=== PATIENT | female | born 1950 | race African-American/Black ===

== ENCOUNTER 2017-09-16 09:29 | Outpatient (CLI) | payer MEDICARE | END 2017-09-16 09:30 | disposition home or self-care (01) | LOC: BICMAMMO 09:29 | PROVIDERS: ATTEND Emergency Medicine | DX: Z12.31 Encounter for screening mammogram for malignant neoplasm of breast (principal); R92.1 Mammographic calcification found on diagnostic imaging of breast | CPT/HCPCS: 77063; 77067 ==

== ENCOUNTER 2018-05-14 21:42 | Emergency (ER) | payer MEDICARE ==
--- NOTE | 2018-05-14 22:36 | RAD ---
CHEST TWO VIEWS: HISTORY: Cough. FINDINGS: PA and lateral views of the chest are obtained. FINDINGS: Left hilar lymph node calcification is seen. Cardiomegaly is seen. Mild pulmonary vascular congestion is seen. No evidence of acute intrathoraci c abnormality is seen. No evidence of effusions, pneumonia, or pneumothorax is seen. IMPRESSION: Cardiomegaly. POS: [facility]
== END 2018-05-14 23:53 | disposition home or self-care (01) ==
LOC: ERS 21:42
DX: J06.9 Acute upper respiratory infection, unspecified (principal); E78.5 Hyperlipidemia, unspecified; I10 Essential (primary) hypertension; Z79.899 Other long term (current) drug therapy
CPT/HCPCS: 71046; 87804

== ENCOUNTER 2018-07-21 08:04 | Outpatient (CLI) | payer MEDICARE ==
--- NOTE | 2018-07-21 10:26 | ULT ---
BILATERAL RENAL ULTRAASOUND WITH DOPPLER: Date: 07/21/18 PROVIDED CLINICAL HISTORY: Chronic kidney disease, hypertension. FINDINGS: Right kidney measures about 10.4 x 4.1 x 4.6 cm and demonstrates no evidence for hydronephrosis or ma ss. Left kidney measures about 10.0 x 5.3 x 5.1 cm and demonstrates no evidence for hydronephrosis or mas s. Color Doppler and spectral analysis was performed of the abdominal aorta, main right and left renal a rteries, and bilateral renal arcuate system. Peak systolic velocity within the aorta is 73.7 cm/second, 119 cm/second involving right main renal a rtery, and 29.8 cm/second involving the left main renal artery. Ratios are 1.6 on the right and .68 o n the left. Resistive indices within the arcuate system is .6 on the right and .63 on the left. IMPRESSION: 1. No evidence for hydronephrosis. 2. No sonographic evidence for renal artery stenosis. POS: [facility]
== END 2018-07-21 08:05 | disposition home or self-care (01) ==
LOC: BICULT 08:04
PROVIDERS: ATTEND Internal Medicine Nephrology
DX: I12.9 Hypertensive chronic kidney disease with stage 1 through stage 4 chronic kidney disease, or unspecified chronic kidney disease (principal); N18.4 Chronic kidney disease, stage 4 (severe)
CPT/HCPCS: 76700; 76770

== ENCOUNTER 2018-11-03 11:41 | Outpatient (CLI) | payer MEDICARE ==
--- NOTE | 2018-11-03 13:44 | MMO ---
Bilateral MAMMO Bilat Screen DDI+LEONCIO. CLINICAL HISTORY: Patient is 68 years old and is seen for screening. The patient has no family history of breast cancer. The patient has no personal history of cancer. VIEWS: The views performed were: bilateral craniocaudal with tomosynthesis and bilateral mediolateral oblique with tomosynthesis. FILMS COMPARED: The present examination has been compared to prior imaging studies performed at [facility] on 10/02/2010, 04/30/2013, 07/01/2014, 08/19/2015, 08/24/2016 and 09/16/2017, and at [facility] on 09/10/2011. MAMMOGRAM FINDINGS: There are scattered fibroglandular densities. There are stable benign appearing calcifications seen in both breasts. There are no suspicious masses, suspicious calcifications, or new areas of architectural distortion. IMPRESSION: THERE IS NO MAMMOGRAPHIC EVIDENCE OF MALIGNANCY. A ROUTINE FOLLOW-UP MAMMOGRAM IN 1 YEAR IS RECOMMENDED. THE RESULTS OF THIS EXAM WERE SENT TO THE PATIENT. ACR BI-RADS Category 2 - Benign finding MAMMOGRAPHY NOTE: 1. A negative mammogram report should not delay a biopsy if a dominant of clinically suspicious mass is present. 2. Approximately 10% to 15% of breast cancers are not detected by mammography. 3. Adenosis and dense breasts may obscure an underlying neoplasm.
== END 2018-11-03 11:42 | disposition home or self-care (01) ==
LOC: BICMAMMO 11:41
PROVIDERS: ATTEND Emergency Medicine
DX: Z12.31 Encounter for screening mammogram for malignant neoplasm of breast (principal)
CPT/HCPCS: 77063; 77067

== ENCOUNTER 2019-08-12 22:04 | Observation (INO) | payer MEDICARE ==
[2019-08-12] MEDS ORDERED: Aspirin Chewable 81 MG TAB ONE (22:16)
[2019-08-12] MEDS ORDERED: Nitroglycerin 0.4 MG TAB 1 EACH ONE (22:16)
[2019-08-12] MEDS ORDERED: Nitroglycerin 2% Ointment 1 INCH/1 GM Packet ONE (22:16)
[2019-08-12 22:26] LABS: #Basophils 0.1 thou/uL (0.0-0.2); #Eosinphils 0.2 thou/uL (0.0-0.7); #Lymphocytes 2.8 thou/uL (1.20-3.40); #Monocytes 0.9 thou/uL (0.11-0.59); #Neutrophils 6.5 thou/uL (1.40-6.50); %Basophils 0.9 % (0.0-1.0); %Eosinophils 2.1 % (0.0-10.0); %Lymphocytes 26.8 % (21.0-51.0); %Monocytes 8.2 % (0.0-10.0); %Neutrophils 62.1 % (42.0-75.0); Mean Corpuscular HGB CONC 32.5 g/dL (32.0-36.0); Mean Corpuscular Hemoglobin 26.4 pg (27.0-31.0); Mean Corpuscular Volume 81.2 fL (78.0-98.0); Mean Platelet Volume 9.4 fL (7.4-10.4); Platelet Count 255 thou/uL (130-400); RBC Distribution Width 13.8 % (11.5-14.5); Red Blood Cell (RBC) Count 4.54 mill/uL (4.20-5.40); White Blood Cell (WBC) Count 10.4 thou/uL (4.8-10.8)
--- NOTE | 2019-08-12 22:34 | RAD ---
Chest AP view INDICATION: Palpitations and chest pain COMPARISON: May 14, 2018 FINDINGS: Lungs:The lungs are clear Cardiac silhouette:Stable mild cardiomegaly. Pulmonary vasculature:Normal Pleural spaces:No pleural effusion or pneumothorax is demonstrated. Upper abdomen:No abnormality seen. Osseous structures: No acute osseous abnormality. Additional findings:Stable calcified lymph nodes within the left hilar region. IMPRESSION: No acute cardiopulmonary abnormality.
[2019-08-12 22:52] LABS: ALT (SGPT) 12 U/L (8-55); AST (SGOT) 11 U/L (5-34); Albumin 4.5 g/dL (3.4-4.8); Alkaline Phosphatase 75 U/L (40-110); Anion Gap 17 mmol/L (10-20); BUN (Urea Nitrogen) 60 mg/dL (9.8-20.1); Bilirubin, Total 0.4 mg/dL (0.2-1.2); CK (CPK) 66 U/L (29-168); Calc. Creatinine Clearance 0 mL/min (70-130); Calcium 9.7 mg/dL (7.8-10.44); Carbon Dioxide 22 mmol/L (23-31); Chloride 107 mmol/L (98-107); Estimated GFR-MDRD 22; Globulin 2.8 g/dL (2.4-3.5); Glucose 125 mg/dL (80-115); Potassium 3.6 mmol/L (3.5-5.1); Protein, Total 7.3 g/dL (6.0-8.3); Sodium 142 mmol/L (136-145)
[2019-08-13 00:06] VITALS: BMI 30.6
[2019-08-13] MEDS ORDERED: Ondansetron ODT 4 MG TAB PO PRN (00:39)
[2019-08-13] MEDS ORDERED: Calcium Carbonate 500 MG ChewTAB PO PRN (00:39)
[2019-08-13] MEDS ORDERED: Acetaminophen 325 MG TAB PO PRN (00:39)
--- NOTE | 2019-08-13 00:46 | PDOC.FPRHP ---
- History of Present Illness Chief Complaint: chest pain History of Present Illness: Patient is a 69F with PMHx of HTN, HLD, CKD3, and anxiety that presents with chest pain. Per patient the chest pain began earlier on the evening of 2/3 while she was at rest. She has never experienced this type of pain before. She states that the pain was sharp in quality and below and lateral to her left breast. She also states that it radiated to her left arm, and she felt blood rushing up through her ears. Her blood pressure on presentation was 217/94. She reports that she has recently been dealing with a sinus infection for the last several weeks. She reports that about 2 weeks ago she went and saw her ED physician that prescribed her abx and steroids and she has a f/u appt with him this week. She reports her sinus infection has caused her to have an intermittent headache throughout the last week, though it had resolved by the time of evaluation. She has not had any previous cardiac workup including echo, stress test, or cardiac cath. No previous MD or stroke. PCP: Missy ED Course: SL nitroglycerin, topical nitroglycerin, asa 324mg - Allergies/Adverse Reactions Allergies Allergy/AdvReac Type Severity Reaction Status Date / Time ENZO Inhibitors Allergy Severe Swollen Verified 08/13/19 00:16 Lips - Home Medications Medication Instructions Recorded Confirmed Type Amlodipine Besylate [amLODIPine 10 mg PO DAILY 09/05/13 08/13/19 History Besylate] cloNIDine HCl 0.3 mg PO TID 09/05/13 08/13/19 History Atorvastatin Calcium [Lipitor] 20 mg PO HS 08/13/19 08/13/19 History Carvedilol 25 mg PO BID 08/13/19 08/13/19 History Cholecalciferol (Vitamin D3) 1,000 unit PO ASDIR 08/13/19 08/13/19 History [Vitamin D3] Hydrochlorothiazide 25 mg PO DAILY 08/13/19 08/13/19 History hydrALAZINE HCl [Hydralazine HCl] 50 mg PO TID 08/13/19 08/13/19 History - History PMHx: HTN, HLD, CKD3, Anxiety PSHx: cholecystectomy, hysterectomy FHx: son had an MD, no other MD or CVA Social: quit smoking 30 years ago, no etoh use, no drug use - Review of Systems General: denies: fever/chills, weight/appetite/sleep changes Eyes: denies: eye pain, vision changes ENT: denies: nasal congestion, rhinorrhea Respiratory: denies: cough, shortness of breath Cardiovascular: reports: chest pain. denies: edema Gastrointestinal: denies: nausea, vomiting, diarrhea Genitourinary: denies: incontinence, polyuria Skin: denies: rashes, lesions Musculoskeletal: denies: pain, stiffness Neurological: denies: numbness, syncope Psychological: reports: anxiety. denies: depression - Vital signs BP: [165/78] HR: [71] RR: [13] Tmax: [98.3] Pox: [99]% on [RA] Wt: [86.0kg] - Physical Exam Constitutional: NAD, awake, alert and oriented, well developed HEENT: EOMI, MMM Neck: supple, FROM Chest: no-tender to palpation, no lesions Heart: RRR, normal S1/S2 Lungs: CTAB, no respiratory distress Abdomen: soft, non-tender Musculoskeletal: normal structure, normal tone Neurological: no focal deficit, normal sensation Skin: no rash/lesions, good turgor Heme/Lymphatic: no unusual bruising or bleeding, no purpura Psychiatric: normal mood and affect, good judgment and insight FMR H&P: Results - Labs Result Diagrams: 08/13/19 04:40 08/13/19 04:40 Lab results: WBC 10.4 thou/uL (4.8-10.8) 08/12/19 22:15 Hgb 12.0 g/dL (12.0-16.0) 08/12/19 22:15 Hct 36.9 % (36.0-47.0) 08/12/19 22:15 MCV 81.2 fL (78.0-98.0) 08/12/19 22:15 Plt Count 255 thou/uL (130-400) 08/12/19 22:15 Neutrophils % 62.1 % (42.0-75.0) 08/12/19 22:15 Sodium 142 mmol/L (136-145) 08/12/19 22:15 Potassium 3.6 mmol/L (3.5-5.1) 08/12/19 22:15 Chloride 107 mmol/L (98-107) 08/12/19 22:15 Carbon Dioxide 22 mmol/L (23-31) L 08/12/19 22:15 BUN 60 mg/dL (9.8-20.1) H 08/12/19 22:15 Creatinine 2.64 mg/dL (0.6-1.1) H 08/12/19 22:15 Glucose 125 mg/dL (80-115) H 08/12/19 22:15 Calcium 9.7 mg/dL (7.8-10.44) 08/12/19 22:15 Total Bilirubin 0.4 mg/dL (0.2-1.2) 08/12/19 22:15 AST 11 U/L (5-34) 08/12/19 22:15 ALT 12 U/L (8-55) 08/12/19 22:15 Alkaline Phosphatase 75 U/L (40-110) 08/12/19 22:15 Creatine Kinase 66 U/L (29-168) 08/12/19 22:15 B-Natriuretic Peptide 98.4 pg/mL (0-100) 08/12/19 22:15 Serum Total Protein 7.3 g/dL (6.0-8.3) 08/12/19 22:15 Albumin 4.5 g/dL (3.4-4.8) 08/12/19 22:15 - EKG Interpretation EKG: NSR, no ST segment elevation - Radiology Interpretation Chest x-ray Status: report reviewed by me (no acute abnormality) FMR H&P: A/P - Problem List (1) Hypertensive urgency Current Visit: Yes Status: Acute Code(s): I16.0 - HYPERTENSIVE URGENCY (2) Atypical chest pain Current Visit: Yes Status: Acute Code(s): R07.89 - OTHER CHEST PAIN (3) HTN (hypertension) Current Visit: Yes Status: Chronic Code(s): I10 - ESSENTIAL (PRIMARY) HYPERTENSION (4) HLD (hyperlipidemia) Current Visit: Yes Status: Chronic Code(s): E78.5 - HYPERLIPIDEMIA, UNSPECIFIED (5) CKD (chronic kidney disease) stage 3, GFR 30-59 ml/min Current Visit: Yes Status: Chronic Code(s): N18.3 - CHRONIC KIDNEY DISEASE, STAGE 3 (MODERATE) (6) Anxiety Current Visit: Yes Status: Chronic Code(s): F41.9 - ANXIETY DISORDER, UNSPECIFIED - Plan Patient is a 69F with PMHx of HTN, HLD, CKD3, and anxiety that is admitted for atypical chest pain. #Atypical chest pain -acute onset chest pain at rest -EKG: NSR, no ST elevation/depression -trop <0.01, will trend -Heart score 5 -BNP: 98.4 -CXR: negative for acute process -stress test in am -NPO for stress test -FLP, TSH, A1C pending for risk stratification -telemetry overnight for cardiac monitoring -nitroglycerin prn for chest pain #Hypertensive urgency -BP 217/94 on presentation -patient has possible ANDREA vs worsening CKD -patient presented with MESA, likely caused by HTN -will continue patient's home BP medications and monitor kidney function in am -IV prn BP medications #HTN -continue home meds -hold home carvedilol for stress test #HLD -continue home meds #ANDREA vs CKD3 -hx of CKD3 -creatinine elevated compared to previously -LR @ 120 -avoid renally toxic medications -will monitor with repeat BMP in am #Anxiety -patient agreeable with the plan of care DVT ppx: SCD Diet: NPO Dispo: tele obs for cardiac monitoring, stress test in am, trending troponins Code: Full PCP: Missy FMR H&P: Upper Level - Pertinent history 69 yo F w/hx of HTN, anxiety, and CKD3 here with complaint of L sided chest pain that onset earlier today. She notes that symptoms started with a headache and being able to feel her heart beating in her ears. She then developed nausea and sweats. Chest pain was described as a feeling of indigestion. It did not radiate. BP in the ED was as high as 217 systolic PMHx HTN CKD3 HLD Social Hx Previous 20-30 year hx of cigarette smoking. Quit 30 years ago No etoh or drugs - Pertinent findings See music intern note for full ROS, PE, vitals, and labs ROS General Denies chills and fever HEENT denies sore throat or ear pain CV Complains of CP and diaphoresis. Denies palpitations Resp Denies SOB or cough GI Denies abdominal pain. Complains of n/v denies dysuria and frequency Neuro denies weakness or numbness. PE General A&O x4 HEENT NCAT CV RRR, no murmur Resp CTA Abd soft, non tender Neuro no focal deficits - Plan Date/Time: 08/13/19 0046 IFitz DO, have evaluated this patient and agree with findings/plan as outlined by music intern resident. Pertinent changes/additions are listed here. 1.Hypertensive urgency - Restart home meds, will add IV PRNs - This is the most likely source of MESA and ANDREA -Goal MAP for first 24 hours is 100 2.ANDREA vs CKD3 - Most recent known GFR is 28, here it is 22. This may represent a worsening of CKD or a result of the elevated BP -Repeat BMP in am 3.Anginal chest pain -Suspect that this is secondary to BP. Initial trop is negative. -HEART score is 5. Will plan for stress in am Diet Heart healthy Code Full PPx SCD Dispo: pt is in good condition. Will plan for BP control over night and adjustment of home meds tomorrow. Likely length of stay is 1-2 days.
[2019-08-13] MEDS ORDERED: cloNIDine 0.3 MG TAB PO SCH (01:15)
[2019-08-13] MEDS ORDERED: hydrALAZINE 25 MG TAB PO SCH (01:15)
[2019-08-13] MEDS ORDERED: Atorvastatin Calcium 20 MG TAB PO SCH ×2 (01:15→21:00)
[2019-08-13 01:44] LABS: Troponin I 0.014 ng/mL (< 0.028)
[2019-08-13] MEDS ORDERED: Lactated Ringer's 1,000 ML IV SCH (02:45)
[2019-08-13 05:05] LABS: #Basophils 0.1 thou/uL (0.0-0.2); #Eosinphils 0.1 thou/uL (0.0-0.7); #Lymphocytes 1.9 thou/uL (1.20-3.40); #Monocytes 0.7 thou/uL (0.11-0.59); #Neutrophils 5.7 thou/uL (1.40-6.50); %Basophils 0.8 % (0.0-1.0); %Eosinophils 1.2 % (0.0-10.0); %Lymphocytes 22.7 % (21.0-51.0); %Monocytes 7.8 % (0.0-10.0); %Neutrophils 67.6 % (42.0-75.0); Hemoglobin 10.5 g/dL (12.0-16.0); Mean Corpuscular Hemoglobin 25.9 pg (27.0-31.0); Mean Platelet Volume 9.7 fL (7.4-10.4); Platelet Count 196 thou/uL (130-400); RBC Distribution Width 13.6 % (11.5-14.5); Red Blood Cell (RBC) Count 4.07 mill/uL (4.20-5.40); White Blood Cell (WBC) Count 8.4 thou/uL (4.8-10.8)
[2019-08-13 05:15] LABS: Hemoglobin A1c 6.1 % (4.0-6.0)
[2019-08-13 05:28] LABS: Anion Gap 14 mmol/L (10-20); BUN (Urea Nitrogen) 56 mg/dL (9.8-20.1); Calc. Creatinine Clearance 33 mL/min (70-130); Calcium 9.7 mg/dL (7.8-10.44); Carbon Dioxide 20 mmol/L (23-31); Chloride 109 mmol/L (98-107); Estimated GFR-MDRD 27; Glucose 118 mg/dL (80-115); Potassium 3.4 mmol/L (3.5-5.1); Sodium 140 mmol/L (136-145)
[2019-08-13 05:30] LABS: Troponin I 0.014 ng/mL (< 0.028)
[2019-08-13] MEDS ORDERED: Nitroglycerin 2% Ointment 1 INCH/1 GM Packet TOP SCH (06:00)
[2019-08-13] MEDS ORDERED: Potassium Chloride 20 MEQ TAB PO SCH (06:30)
[2019-08-13] MEDS ORDERED: Labetalol HCl 100 MG/20 ML VIAL SLOW IVP PRN (06:31)
[2019-08-13] MEDS ORDERED: Aspirin 325 MG TAB PO SCH (08:00)
[2019-08-13] MEDS: hydrALAZINE 25 MG TAB PO SCH ×2 (08:09→15:36)
[2019-08-13] MEDS: cloNIDine 0.3 MG TAB PO SCH ×2 (08:09→15:37)
[2019-08-13] MEDS ORDERED: Amlodipine 10 MG TAB PO SCH (09:00)
[2019-08-13] MEDS ORDERED: Hydrochlorothiazide 25 MG TAB PO SCH (09:00)
[2019-08-13] MEDS ORDERED: Prevnar 13-Val Conj/PF 0.5 ML SYRINGE IM ONE (09:00)
--- NOTE | 2019-08-13 11:08 | PRG ---
DATE OF SERVICE: 08/13/2019 SUBJECTIVE: I have examined the patient and discussed the case with Dr. Anna Marie Sena. I agree with her assessment and plan. Briefly, Ms. Simon is a 69-year-old black female, who was admitted with hypertension, chest pain, and CKD. This morning, she is pleasant and alert. Blood pressure has improved, and she is no longer having chest discomfort. OBJECTIVE: VITAL SIGNS: On exam, her blood pressure is now 165/78, heart rate 71 and regular, respirations 13, and temperature 98.3. Her room air O2 saturation is 99%. EAR, NOSE, AND THROAT: No erythema or exudate. NECK: Supple without JVD. CARDIAC: Heart rhythm regular, S4 gallop. No murmur and no rub noted. LUNGS: Clear. No rales or wheezes. No distress. ABDOMEN: Flat, soft without bruit. NEUROLOGICAL: No focal deficits. IMAGING STUDIES: EKG with no acute ischemic changes. LABORATORY DATA: CBC; white count 10,400, hemoglobin 12, and hematocrit 36.9 with an MCV of 81. Chemistries; sodium 140, potassium 3.4, chloride 109, bicarb 20, BUN 56, and creatinine 2.18. ASSESSMENT: Chest pain. PLAN: The patient will be admitted. Her tropes have been trended and are normal at 0.014. She will undergo a stress Myoview with further workup depending on results. Job ID: [id number]
--- NOTE | 2019-08-13 11:25 | NM ---
NUCLEAR MEDICINE CARDIAC MYOCARDIAL PERFUSION SPECT EJECTION FRACTION STUDY WALL MOTION CINE: DATE: 08/13/2019 HISTORY: 69 year old female with hypertension and dyslipidemia presents with atypical chest pain TECHNIQUE: Number of days: 1 Rest study: Technetium 99m-sestamibi (Cardiolite) dose: 10.4 mCi Pharmacologic stress: Adenosine dose: 48.1 mg Stress study: Technetium 99m-sestamibi (Cardiolite) dose: 30.2 mCi FINDINGS: CARDIAC (MYOCARDIAL PERFUSION) SPECT Distribution of sestamibi is homogeneous throughout the left ventricle, with no fixed or reversible m yocardial perfusion defects. EJECTION FRACTION STUDY Left ventricular EF = 83 % WALL MOTION CINE The left ventricular wall motion is normal. There is normal systolic wall thickening. IMPRESSION: Normal.
[2019-08-13] MEDS ORDERED: ADENOSINE 60 MG/20 ML VIAL ONE (12:13)
[2019-08-13 12:22] VITALS: TEMP 97.2
[2019-08-13 16:53] VITALS: BP 149/85
--- NOTE | 2019-08-13 23:57 | DIS ---
DATE OF ADMISSION: 08/12/2019 DATE OF DISCHARGE: 08/13/2019 RESIDENT: Jimena Solomon, PGY-2. ADMITTING ATTENDING: Alex Mccullough MD DISCHARGE ATTENDING: Alex Mccullough MD. CONSULTS: None. PROCEDURES: 1. Chest x-ray on 08/12/2019, no acute cardiopulmonary abnormality. 2. Stress test on 08/13/2019, no reversible ischemia. EF 63%. 3. Echocardiogram on 08/13/2019, EF 60% to 65%. Left ventricular hypertrophy. Grade 1 diastolic dysfunction. Left atrium moderately to severely dilated. Moderately enlarged right atrium size. Trace mitral regurg present. Mild tricuspid regurg. PRIMARY DIAGNOSES: 1. Hypertensive urgency. 2. Atypical chest pain. SECONDARY DIAGNOSES: 1. Hypertension. 2. Hyperlipidemia. 3. Acute kidney injury versus chronic kidney disease 3. 4. Anxiety. DISCHARGE MEDICATIONS: 1. Amlodipine 10 mg daily. 2. Atorvastatin 20 mg at bedtime. 3. Tums 1000 mg q.4 hours. 4. Carvedilol 25 mg b.i.d. 5. Vitamin D3 1000 units p.o. 6. Clonidine 0.3 mg p.o. t.i.d. 7. Hydralazine 50 mg t.i.d. 8. Hydrochlorothiazide 25 mg p.o. daily. DISCONTINUED MEDICATIONS: None. HISTORY OF PRESENT ILLNESS/HOSPITAL COURSE: Ms. Simon is a 69-year-old female with past medical history of hypertension, hyperlipidemia, CKD 3, and anxiety, who presented with chest pain at rest with radiation to the left arm. Initial blood pressure 217/94. She had also had intermittent headache. In the ER, she was given nitroglycerin sublingual and topically as well as aspirin. EKG, normal sinus rhythm, no ST-segment elevation. Chest x-ray showed no acute abnormality. HEART score was 5. Troponins were negative x3. Stress test was negative for reversible ischemia. Her fasting lipid panel and TSH were normal. A1c 6.1. In regard to her kidney function, initial creatinine 2.64, 2.18 at discharge. GFR 22, 27. Blood pressure prior to discharge 149/85. DISPOSITION: Stable. DISCHARGE INSTRUCTIONS: 1. Location: Home. 2. Diet: Heart healthy, low-sodium. 3. Activity: No restrictions. 4. Follow up with Dr. Lucas at [facility] within 3 days. Job ID: [id number]
== END 2019-08-13 18:25 | disposition home or self-care (01) ==
LOC: ERS 22:04 → 2SW 23:16
PROVIDERS: ADMIT Family Medicine; ATTEND Family Medicine
DX: I16.0 Hypertensive urgency (principal); I12.9 Hypertensive chronic kidney disease with stage 1 through stage 4 chronic kidney disease, or unspecified chronic kidney disease; N18.3 Chronic kidney disease, stage 3 (moderate); E78.5 Hyperlipidemia, unspecified; F41.9 Anxiety disorder, unspecified; Z87.891 Personal history of nicotine dependence; Z79.899 Other long term (current) drug therapy; Z88.8 Allergy status to other drugs, medicaments and biological substances
CPT/HCPCS: 71045; 78452; 80048; 80053; 80061; 82550; 83036; 83880; 84443; 84484 ×3; 85025 ×2; 93005; 93017; 93306; 96360; 96361; 99285; A9500; G0378 ×2; 36415; J0153

== ENCOUNTER 2019-08-31 14:18 | Outpatient (CLI) | payer MEDICARE ==
--- NOTE | 2019-08-31 16:09 | ULT ---
EXAM: RENAL ULTRASOUND WITH DOPPLER: 08/31/19 HISTORY: Essential hypertension, malignant hypertension. COMPARISON: 07/21/18. TECHNIQUE: Warner scale, color flow, Doppler imaging with spectral waveform analysis performed in the left and rig ht kidney. FINDINGS: Right kidney measures 9.7 x 5.4 x 4.2 cm. Left kidney measures 5.2 x 5.0 x 9.1 cm. There is a 0.6 cm cyst in the upper pole of the right kidney. There is a 1 cm cyst in the lower pole of the left kidney. Bilaterally, no hydronephrosis. RENAL DOPPLER: Right renal artery has a velocity of 101 cm/s. Left renal artery has a velocity of 94 cm/s. Aorta has a velocity of 88.6 cm/s. Right renal artery to aortic ratio is 1.14. Left renal artery to aortic ratio is 1.06. Right arcuate artery resistive index is 0.62. Left arcuate artery resistive index is 0.68. IMPRESSION: 1. No hydronephrosis. 2. Normal bilateral arcuate artery resistive indexes. POS: [facility]
== END 2019-08-31 14:19 | disposition home or self-care (01) ==
LOC: BICULT 14:18
PROVIDERS: ATTEND Emergency Medicine
DX: I10 Essential (primary) hypertension (principal)
CPT/HCPCS: 76770

== ENCOUNTER 2020-01-03 09:51 | Outpatient (CLI) | payer MEDICARE ==
--- NOTE | 2020-01-03 10:41 | MMO ---
Bilateral MAMMO Bilat Screen [facility]DI[facility]. CLINICAL HISTORY: Patient is 69 years old and is seen for screening. The patient has no family history of breast cancer. The patient has no personal history of cancer. VIEWS: The views performed were: bilateral craniocaudal with tomosynthesis; bilateral mediolateral oblique with tomosynthesis; and bilateral exaggerated craniocaudal. FILMS COMPARED: The present examination has been compared to prior imaging studies performed at [facility] on 08/19/2015, 08/24/2016, 09/16/2017 and 11/03/2018. This study has been interpreted with the assistance of computer-aided detection. MAMMOGRAM FINDINGS: There are scattered fibroglandular densities. Finding 1: There are stable benign appearing calcifications seen in both breasts. Finding 2: There are stable benign appearing densities seen in both breasts. There are no suspicious masses, suspicious calcifications, or new areas of architectural distortion. IMPRESSION: THERE IS NO MAMMOGRAPHIC EVIDENCE OF MALIGNANCY. A ROUTINE FOLLOW-UP MAMMOGRAM IN 1 YEAR IS RECOMMENDED. THE RESULTS OF THIS EXAM WERE SENT TO THE PATIENT. ACR BI-RADS Category 2 - Benign finding MAMMOGRAPHY NOTE: 1. A negative mammogram report should not delay a biopsy if a dominant of clinically suspicious mass is present. 2. Approximately 10% to 15% of breast cancers are not detected by mammography. 3. Adenosis and dense breasts may obscure an underlying neoplasm. Reported by: YOVANI SNYDER MD Electonically Signed: [id number]
== END 2020-01-03 09:52 | disposition home or self-care (01) ==
LOC: BICMAMMO 09:51
PROVIDERS: ATTEND Emergency Medicine
DX: Z12.31 Encounter for screening mammogram for malignant neoplasm of breast (principal)
CPT/HCPCS: 77063; 77067

== ENCOUNTER 2020-01-20 18:14 | Emergency (ER) | payer MEDICARE, OTHER ==
[2020-01-20 19:17] LABS: #Basophils 0.1 thou/uL (0.0-0.2); #Eosinphils 0.1 thou/uL (0.0-0.7); #Lymphocytes 1.5 thou/uL (1.20-3.40); #Monocytes 0.6 thou/uL (0.11-0.59); #Neutrophils 5.5 thou/uL (1.40-6.50); %Basophils 0.8 % (0.0-1.0); %Eosinophils 1.7 % (0.0-10.0); %Lymphocytes 19.5 % (21.0-51.0); %Monocytes 7.2 % (0.0-10.0); %Neutrophils 70.9 % (42.0-75.0); Hemoglobin 10.6 g/dL (12.0-16.0); Mean Corpuscular HGB CONC 33.4 g/dL (32.0-36.0); Mean Corpuscular Hemoglobin 26.7 pg (27.0-31.0); Mean Platelet Volume 8.8 fL (7.4-10.4); Platelet Count 219 thou/uL (130-400); RBC Distribution Width 12.8 % (11.5-14.5); Red Blood Cell (RBC) Count 3.96 mill/uL (4.20-5.40); White Blood Cell (WBC) Count 7.8 thou/uL (4.8-10.8)
[2020-01-20 19:38] LABS: ALT (SGPT) 8 U/L (8-55); AST (SGOT) 10 U/L (5-34); Albumin 4.2 g/dL (3.4-4.8); Alkaline Phosphatase 73 U/L (40-110); Anion Gap 12 mmol/L (10-20); BUN (Urea Nitrogen) 28 mg/dL (9.8-20.1); Bilirubin, Total 0.6 mg/dL (0.2-1.2); Calc. Creatinine Clearance 0 mL/min (70-130); Calcium 9.7 mg/dL (7.8-10.44); Carbon Dioxide 24 mmol/L (23-31); Chloride 106 mmol/L (98-107); Estimated GFR-MDRD 28; Globulin 2.6 g/dL (2.4-3.5); Glucose 108 mg/dL (80-115); Potassium 3.6 mmol/L (3.5-5.1); Protein, Total 6.8 g/dL (6.0-8.3); Sodium 138 mmol/L (136-145)
--- NOTE | 2020-01-20 20:01 | RAD ---
CHEST ONE VIEW: History: Shortness of breath Comparison: 09-10-2019 FINDINGS: Mild cardiomegaly. Old granulomatous disease. No confluent pneumonia, overt edema, or pleural effusio n. IMPRESSION: Mild cardiomegaly. Old granulomatous disease. Atherosclerosis of the aorta. No significant acute proc ess. POS: [facility]
[2020-01-20] MEDS ORDERED: Dexamethasone 10 MG/ML VIAL ONE (21:06)
[2020-01-21 11:48] LABS: SARS-CoV-2 MS2 Positive; SARS-CoV-2 N Gene Negative; SARS-CoV-2 S Gene Negative; SARS-CoV-2 orf1ab Negative
== END 2020-01-20 21:35 | disposition home or self-care (01) ==
LOC: ERS 18:14
DX: R05 Cough (principal); R06.02 Shortness of breath; Z20.828 Contact with and (suspected) exposure to other viral communicable diseases; I12.9 Hypertensive chronic kidney disease with stage 1 through stage 4 chronic kidney disease, or unspecified chronic kidney disease; N18.9 Chronic kidney disease, unspecified; E78.5 Hyperlipidemia, unspecified; E78.00 Pure hypercholesterolemia, unspecified
CPT/HCPCS: 71045; 80053; 83880; 84484; 85025; 93005; 96372; 99285; U0003; 87635; J1100

== ENCOUNTER 2020-03-14 14:46 | Emergency (ER) | payer MEDICARE, OTHER ==
--- NOTE | 2020-03-14 15:56 | ULT ---
EXAM: Right lower extremity venous Doppler US HISTORY: Right lower extremity edema and pain, right posterior knee pain FINDINGS: Grayscale, color-flow, Doppler evaluation, spectral analysis of the right lower extremity venous stru ctures is performed with 2-D imaging. The right common femoral, superficial femoral, popliteal, posterior tibial, proximal greater saphenous and profunda femoral veins are imaged. There is normal luminal compressibility, flow, and augmentation the visualized deep venous structures of the right lower extremity. There is a 5.5 x 1.9 x 3.3 cm avascular cystic mass in the popliteal fossa, consistent with Barbosa's c yst. IMPRESSION: No evidence of a deep vein thrombosis in the right lower extremity.
[2020-03-14] MEDS ORDERED: Ketorolac Tromethamine 30 MG/ML VIAL ONE (16:01)
== END 2020-03-14 17:26 | disposition home or self-care (01) ==
LOC: ERS 14:46
DX: M71.21 Synovial cyst of popliteal space [Baker], right knee (principal); E78.00 Pure hypercholesterolemia, unspecified; E78.5 Hyperlipidemia, unspecified; I12.9 Hypertensive chronic kidney disease with stage 1 through stage 4 chronic kidney disease, or unspecified chronic kidney disease; N18.9 Chronic kidney disease, unspecified; Z87.891 Personal history of nicotine dependence; Z79.51 Long term (current) use of inhaled steroids; Z79.899 Other long term (current) drug therapy
CPT/HCPCS: 96372; J1885

== ENCOUNTER 2020-05-11 17:39 | Emergency (ER) | payer MEDICARE ==
--- NOTE | 2020-05-11 19:53 | ULT ---
RIGHT LOWER EXTREMITY DOPPLER VENOUS ULTRASOUND PROVIDED CLINICAL HISTORY: Unilateral pain and edema in the right lower extremity TECHNIQUE: Grayscale and color Doppler sonography with spectral analysis was performed of the right common femor al, femoral, popliteal, posterior tibial, greater saphenous and profunda femoral veins. FINDINGS: There is normal compression, flow and augmentation seen within the deep venous structures o f the right lower extremity. Incidental note is made of a complex cystic abnormality extending to the posterior medial aspect of the right knee joint and along the superficial aspect of the medial ga strocnemius suspicious for a large Barbosa's cyst. There is moderate joint effusion is are noted within the right knee. IMPRESSION: No sonographic evidence for right lower extremity deep venous thrombosis. 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 Recommend correlation with the clinical exam.
== END 2020-05-11 20:50 | disposition home or self-care (01) ==
LOC: ERS 17:39
DX: S86.911A Strain of unspecified muscle(s) and tendon(s) at lower leg level, right leg, initial encounter (principal); I12.9 Hypertensive chronic kidney disease with stage 1 through stage 4 chronic kidney disease, or unspecified chronic kidney disease; N18.9 Chronic kidney disease, unspecified; E78.5 Hyperlipidemia, unspecified; E78.00 Pure hypercholesterolemia, unspecified; X50.9XXA Other and unspecified overexertion or strenuous movements or postures, initial encounter; Z79.899 Other long term (current) drug therapy; Z87.891 Personal history of nicotine dependence

== ENCOUNTER 2020-06-16 20:51 | Emergency (ER) | payer MEDICARE ==
--- NOTE | 2020-06-16 21:46 | RAD ---
XR Knee Lt 4 View STANDARD History: Pain Comparison: None. Findings: Mild medial compartment joint space narrowing with small osteophyte formation. Likely a sma ll left-sided flabella. Mild superficial soft tissue swelling. No significant joint effusion. Impression: 1. Mild medial compartment degenerative change. 2. No acute fracture or malalignment. 3. Superficial circumferential soft tissue swelling. Findings can be seen with venous insufficiency o r lymphedema.
--- NOTE | 2020-06-17 07:29 | ULT ---
PRELIMINARY REPORT/[facility]/EMERGENCY AFTER HOURS PROCEDURE: This report was discussed with Lori Larsen RN by Janie Galvin on Jun 17, 2020 00:59:00 GENERAL MERCHANDISE MANAGER. Addendum electronically signed by Janie Galvin on June 17, 2020 1:00:11 AM GENERAL MERCHANDISE MANAGER EXAM: US Duplex left Lower Extremity Veins. CLINICAL HISTORY: LLE pain/edema X 4 days TECHNIQUE: Real-time ultrasound scan of the veins of the left lower extremity with color Doppler flow , spectral waveform analysis and compression. COMPARISON: None provided. FINDINGS: DEEP VEINS: This study is positive for deep venous thrombosis involving the left common femoral vein to the distal popliteal vein with very little flow identified. The lower posterior tibial veins are identified and have blood flow with appropriate compression.. SUPERFICIAL VEINS: The visualized greater saphenous vein is patent. SOFT TISSUES: No popliteal fossa cyst or other abnormalities. IMPRESSION: Positive for deep venous thrombosis involving the left common femoral vein to the distal popliteal vein. ELECTRONICALLY SIGNED BY: Celena Vazquez DO Jun 17, 2020 12:54:42 AM GENERAL MERCHANDISE MANAGER FINAL REPORT VENOUS DOPPLER ULTRASOUND OF THE LEFT LOWER EXTREMITY: Negative report given by Dr. Celena Vazquez of [facility]. Transcribed Date/Time: 06/17/2020 8:11 AM
== END 2020-06-17 01:46 | disposition home or self-care (01) ==
LOC: ERS 20:51
DX: I82.412 Acute embolism and thrombosis of left femoral vein (principal); I12.0 Hypertensive chronic kidney disease with stage 5 chronic kidney disease or end stage renal disease; N18.9 Chronic kidney disease, unspecified; E78.5 Hyperlipidemia, unspecified; E78.00 Pure hypercholesterolemia, unspecified; Z87.891 Personal history of nicotine dependence; Z79.899 Other long term (current) drug therapy

== ENCOUNTER 2020-12-01 23:29 | Inpatient (IN) | payer MEDICARE ==
[2020-12-02 00:42] LABS: #Basophils 0.1 thou/uL (0.0-0.2); #Eosinphils 0.2 thou/uL (0.0-0.7); #Lymphocytes 2.4 thou/uL (1.20-3.40); #Monocytes 0.9 thou/uL (0.11-0.59); #Neutrophils 7.5 thou/uL (1.40-6.50); %Basophils 0.8 % (0.0-1.0); %Eosinophils 1.6 % (0.0-10.0); %Lymphocytes 21.5 % (21.0-51.0); %Monocytes 8.2 % (0.0-10.0); %Neutrophils 67.9 % (42.0-75.0); Hemoglobin 10.2 g/dL (12.0-16.0); Mean Corpuscular HGB CONC 34.7 g/dL (32.0-36.0); Mean Corpuscular Hemoglobin 27.6 pg (27.0-31.0); Mean Corpuscular Volume 79.6 fL (78.0-98.0); Mean Platelet Volume 9.2 fL (7.4-10.4); Platelet Count 255 thou/uL (130-400); RBC Distribution Width 14.1 % (11.5-14.5); Red Blood Cell (RBC) Count 3.69 mill/uL (4.20-5.40)
[2020-12-02 01:02] LABS: ALT (SGPT) Less than 7 U/L (8-55); AST (SGOT) 10 U/L (5-34); Albumin 4.1 g/dL (3.4-4.8); Alkaline Phosphatase 92 U/L (40-110); Anion Gap 15 mmol/L (10-20); BUN (Urea Nitrogen) 46 mg/dL (9.8-20.1); Bilirubin, Total 0.4 mg/dL (0.2-1.2); Calc. Creatinine Clearance 0 mL/min (70-130); Calcium 10.1 mg/dL (7.8-10.44); Carbon Dioxide 22 mmol/L (23-31); Chloride 111 mmol/L (98-107); Glucose 111 mg/dL (83-110); Potassium 4.1 mmol/L (3.5-5.1); Protein, Total 7.1 g/dL (5.8-8.1); Sodium 144 mmol/L (136-145)
[2020-12-02] MEDS ORDERED: Furosemide 20 MG/2 ML VIAL ONE (01:50)
[2020-12-02] MEDS ORDERED: Dextrose 5% in Water 1,000 ML IV PRN (02:01)
[2020-12-02] MEDS ORDERED: Acetaminophen 650 MG Suppository PR PRN (02:01)
[2020-12-02] MEDS ORDERED: Ondansetron ODT 4 MG TAB PO PRN (02:01)
[2020-12-02] MEDS ORDERED: Senokot S 8.6-50 MG TAB PO PRN (02:01)
[2020-12-02] MEDS ORDERED: Dextrose 50% Abboject 50 ML SYRINGE SLOW IVP PRN (02:01)
[2020-12-02] MEDS ORDERED: HumaLOG 300 UNITS/3 ML VIAL SC PRN ×2 (02:01)
[2020-12-02] MEDS ORDERED: Acetaminophen 325 MG TAB PO PRN (02:01)
[2020-12-02] MEDS ORDERED: Calcium Carbonate 500 MG ChewTAB PO PRN ×2 (02:01→06:26)
[2020-12-02] MEDS ORDERED: Ondansetron PF 4 MG/2 ML Vial IVP PRN (02:01)
[2020-12-02] MEDS ORDERED: Nitroglycerin 2% Ointment 1 INCH/1 GM Packet ONE (02:16)
[2020-12-02 03:58] VITALS: BMI 31.1
[2020-12-02 04:25] LABS: Troponin I 0.014 ng/mL (< 0.028)
[2020-12-02 04:32] LABS: SARS-CoV-2 NAA Rapid Test Not Detected (NotDetected)
[2020-12-02 05:14] LABS: #Basophils 0.1 thou/uL (0.0-0.2); #Eosinphils 0.1 thou/uL (0.0-0.7); #Monocytes 0.7 thou/uL (0.11-0.59); #Neutrophils 6.5 thou/uL (1.40-6.50); %Basophils 0.8 % (0.0-1.0); %Eosinophils 1.3 % (0.0-10.0); %Lymphocytes 20.9 % (21.0-51.0); %Monocytes 7.3 % (0.0-10.0); %Neutrophils 69.7 % (42.0-75.0); Mean Corpuscular HGB CONC 33.1 g/dL (32.0-36.0); Mean Corpuscular Hemoglobin 26.1 pg (27.0-31.0); Mean Platelet Volume 9.1 fL (7.4-10.4); Platelet Count 219 thou/uL (130-400); RBC Distribution Width 14.1 % (11.5-14.5); Red Blood Cell (RBC) Count 3.83 mill/uL (4.20-5.40); White Blood Cell (WBC) Count 9.4 thou/uL (4.8-10.8)
[2020-12-02 05:29] LABS: ALT (SGPT) Less than 7 U/L (8-55); AST (SGOT) 10 U/L (5-34); Albumin 3.9 g/dL (3.4-4.8); Alkaline Phosphatase 89 U/L (40-110); Anion Gap 15 mmol/L (10-20); BUN (Urea Nitrogen) 42 mg/dL (9.8-20.1); Bilirubin, Total 0.5 mg/dL (0.2-1.2); Calc. Creatinine Clearance 26 mL/min (70-130); Calcium 9.8 mg/dL (7.8-10.44); Carbon Dioxide 21 mmol/L (23-31); Chloride 109 mmol/L (98-107); Globulin 2.7 g/dL (2.4-3.5); Glucose 130 mg/dL (83-110); Magnesium 1.6 mg/dL (1.6-2.6); Phosphorus 3.9 mg/dL (2.3-4.7); Potassium 3.7 mmol/L (3.5-5.1); Protein, Total 6.6 g/dL (5.8-8.1); Sodium 141 mmol/L (136-145)
[2020-12-02 06:30] LABS: Troponin I Less than 0.010 ng/mL (< 0.028)
[2020-12-02] MEDS ORDERED: Furosemide 20 MG/2 ML VIAL SLOW IVP SCH (08:30)
[2020-12-02] MEDS ORDERED: Heparin 5,000 UNITS/ML VIAL SC SCH (09:00)
[2020-12-02] MEDS ORDERED: Amlodipine 10 MG TAB PO SCH (09:00)
[2020-12-02] MEDS ORDERED: Furosemide 40 MG/4 ML VIAL SLOW IVP SCH ×2 (09:00→16:15)
[2020-12-02] MEDS: cloNIDine 0.3 MG TAB PO SCH ×3 (09:39→19:37)
[2020-12-02] MEDS: Carvedilol 25 MG TAB PO SCH ×2 (09:40→16:27)
[2020-12-02] MEDS: hydrALAZINE 25 MG TAB PO SCH ×3 (09:40→19:38)
[2020-12-02] MEDS: Apixaban 5 MG TAB PO SCH ×2 (09:40→19:37)
[2020-12-02] MEDS: Cholecalciferol 1,000 UNITS (25 MCG) TAB PO SCH ×3 (09:40→19:39)
[2020-12-02] MEDS ORDERED: Potassium Chloride 20 MEQ TAB PO SCH (10:15)
[2020-12-02 11:48] LABS: Hemoglobin 10.2 g/dL (12.0-16.0); Platelet Count 244 thou/uL (130-400)
[2020-12-02] MEDS ORDERED: Albuterol Sulfate 2.5 mg/3 ml Neb NEB PRN (12:53)
[2020-12-02] MEDS ORDERED: NIFEdipine XL 30 MG TAB PO SCH (13:00)
[2020-12-02] MEDS ORDERED: Atorvastatin Calcium 20 MG TAB PO SCH (21:00)
[2020-12-03 06:38] LABS: Anion Gap 13 mmol/L (10-20); BUN (Urea Nitrogen) 45 mg/dL (9.8-20.1); Calc. Creatinine Clearance 24 mL/min (70-130); Calcium 9.4 mg/dL (7.8-10.44); Carbon Dioxide 23 mmol/L (23-31); Chloride 105 mmol/L (98-107); Glucose 111 mg/dL (83-110); Potassium 3.8 mmol/L (3.5-5.1); Sodium 137 mmol/L (136-145)
[2020-12-03 07:16] VITALS: TEMP 98.7
[2020-12-03] MEDS: Cholecalciferol 1,000 UNITS (25 MCG) TAB PO SCH ×2 (08:24→08:25)
[2020-12-03] MEDS: cloNIDine 0.3 MG TAB PO SCH (08:24)
[2020-12-03] MEDS: Carvedilol 25 MG TAB PO SCH (08:24)
[2020-12-03] MEDS: Apixaban 5 MG TAB PO SCH (08:25)
[2020-12-03] MEDS: hydrALAZINE 25 MG TAB PO SCH (08:25)
[2020-12-03] MEDS ORDERED: Fluticasone Propionate Nasal Spray 16 gm Bottle NASAL SCH (09:00)
[2020-12-03] MEDS ORDERED: Potassium Chloride 20 MEQ TAB PO SCH (09:00)
[2020-12-03] MEDS ORDERED: NIFEdipine XL 60 MG TAB PO SCH (09:00)
[2020-12-03] MEDS ORDERED: Furosemide 20 MG TAB PO SCH (09:00)
[2020-12-03 11:09] VITALS: BP 130/60
== END 2020-12-03 13:35 | disposition home or self-care (01) | DRG 291 ==
LOC: ERS 23:29 → OBSVTOIN 12-02 01:59 → 2NO 12-02 01:59
PROVIDERS: ADMIT Student in an Organized Health Care Education/Training Program; ATTEND Student in an Organized Health Care Education/Training Program
DX: I13.0 Hypertensive heart and chronic kidney disease with heart failure and stage 1 through stage 4 chronic kidney disease, or unspecified chronic kidney disease (principal); I50.33 Acute on chronic diastolic (congestive) heart failure; N17.9 Acute kidney failure, unspecified; I16.1 Hypertensive emergency; N18.4 Chronic kidney disease, stage 4 (severe); I82.512 Chronic embolism and thrombosis of left femoral vein; Z20.822 Contact with and (suspected) exposure to COVID-19; E78.5 Hyperlipidemia, unspecified; M10.9 Gout, unspecified; D63.1 Anemia in chronic kidney disease; F41.9 Anxiety disorder, unspecified; J30.9 Allergic rhinitis, unspecified; E78.00 Pure hypercholesterolemia, unspecified; I16.0 Hypertensive urgency; R73.03 Prediabetes; Z88.8 Allergy status to other drugs, medicaments and biological substances; Z79.899 Other long term (current) drug therapy; Z90.49 Acquired absence of other specified parts of digestive tract; Z90.710 Acquired absence of both cervix and uterus; Z87.891 Personal history of nicotine dependence; Z79.01 Long term (current) use of anticoagulants; Z79.51 Long term (current) use of inhaled steroids
CPT/HCPCS: 36415; 36416; 71045; 80048; 80053; 82088; 83735; 83880; 84100; 84244; 84484; 85025; 93005; 93306; 96374; 96376; G0378; J1940; U0002; U0005

== ENCOUNTER 2020-12-18 08:18 | Day surgery (SDC) | payer MEDICARE ==
[2020-12-16 14:16] VITALS: BMI 29.3
[2020-12-18 08:39] LABS: PTT 30.2 sec (22.9-36.1); Prothrombin Time 13.5 sec (12.0-14.7)
[2020-12-18 10:52] VITALS: BP 175/87; TEMP 98.1
== END 2020-12-18 12:00 | disposition home or self-care (01) ==
LOC: CT 08:18
PROVIDERS: ATTEND Internal Medicine Nephrology
PROC: 0TB03ZX Excision of Right Kidney, Percutaneous Approach, Diagnostic (ICD-10-PCS; principal; 2020-12-18)
DX: I13.0 Hypertensive heart and chronic kidney disease with heart failure and stage 1 through stage 4 chronic kidney disease, or unspecified chronic kidney disease (principal); E11.22 Type 2 diabetes mellitus with diabetic chronic kidney disease; N18.4 Chronic kidney disease, stage 4 (severe); I50.9 Heart failure, unspecified; D63.1 Anemia in chronic kidney disease; E83.42 Hypomagnesemia; E87.6 Hypokalemia; E78.5 Hyperlipidemia, unspecified; M10.9 Gout, unspecified; K21.9 Gastro-esophageal reflux disease without esophagitis; Z87.891 Personal history of nicotine dependence; Z79.01 Long term (current) use of anticoagulants; Z79.899 Other long term (current) drug therapy; Z88.8 Allergy status to other drugs, medicaments and biological substances
CPT/HCPCS: 50200; 77012; 85610; 85730; 88305; 88313; 88329; 88346; 88348; 88350

== ENCOUNTER 2021-05-25 07:03 | Outpatient (CLI) | payer MEDICARE | END 2021-05-25 07:04 | disposition home or self-care (01) | LOC: BICULT 07:03 | PROVIDERS: ATTEND Internal Medicine Gastroenterology | DX: K30 Functional dyspepsia (principal); K21.9 Gastro-esophageal reflux disease without esophagitis; K82.8 Other specified diseases of gallbladder; K59.00 Constipation, unspecified; Z86.010 Personal history of colon polyps; N28.1 Cyst of kidney, acquired; Z90.49 Acquired absence of other specified parts of digestive tract | CPT/HCPCS: 76700 ==

== ENCOUNTER 2021-06-14 12:43 | Emergency (ER) | payer MEDICARE, SELFPAY ==
[2021-06-14 13:42] LABS: #Basophils 0.1 thou/uL (0.0-0.2); #Eosinphils 0.1 thou/uL (0.0-0.7); #Lymphocytes 1.4 thou/uL (1.20-3.40); #Monocytes 0.5 thou/uL (0.11-0.59); %Basophils 0.7 % (0.0-1.0); %Eosinophils 1.1 % (0.0-10.0); %Lymphocytes 17.9 % (21.0-51.0); %Monocytes 5.7 % (0.0-10.0); %Neutrophils 74.6 % (42.0-75.0); Mean Corpuscular HGB CONC 32.9 g/dL (32.0-36.0); Mean Corpuscular Hemoglobin 27.4 pg (27.0-31.0); Mean Corpuscular Volume 83.1 fL (78.0-98.0); Mean Platelet Volume 8.2 fL (7.4-10.4); Platelet Count 226 thou/uL (130-400); RBC Distribution Width 13.5 % (11.5-14.5); Red Blood Cell (RBC) Count 3.64 mill/uL (4.20-5.40)
[2021-06-14 14:01] LABS: ALT (SGPT) 8 U/L (8-55); AST (SGOT) 10 U/L (5-34); Albumin 3.9 g/dL (3.4-4.8); Alkaline Phosphatase 87 U/L (40-110); Anion Gap 14 mmol/L (10-20); BUN (Urea Nitrogen) 42 mg/dL (9.8-20.1); Bilirubin, Total 0.6 mg/dL (0.2-1.2); Calc. Creatinine Clearance 0 mL/min (70-130); Calcium 9.7 mg/dL (7.8-10.44); Carbon Dioxide 21 mmol/L (23-31); Chloride 110 mmol/L (98-107); Globulin 2.3 g/dL (2.4-3.5); Glucose 113 mg/dL (83-110); Potassium 4.3 mmol/L (3.5-5.1); Protein, Total 6.2 g/dL (5.8-8.1); Sodium 141 mmol/L (136-145)
[2021-06-14 14:05] LABS: CKMB 0.9 ng/mL (0-6.6)
[2021-06-14] MEDS ORDERED: Ibuprofen 200 MG TAB ONE (16:20)
[2021-06-14 16:24] LABS: Troponin I Less than 0.010 ng/mL (< 0.028)
[2021-06-14 16:35] LABS: Bilirubin Negative (Negative); Blood, Urine Negative (Negative); Clarity Clear (Clear); Glucose, Urine (Dipstick) Normal (Negative); Ketone, Urine Negative (Negative); Leukocyte Negative Leu/uL (Negative); Nitrite Negative (Negative); Protein, Urine (Dipstick) 50 mg/dL (Neg-Trace); RBC/HPF 0-3 HPF (0-3); Specific Gravity, Urine 1.013 (1.002-1.036); Urobilinogen Normal mg/dL (Less than 2); WBC/HPF 0-3 HPF (0-3)
[2021-06-14 16:36] LABS: Bacteria/HPF 1+ HPF (None Seen)
== END 2021-06-14 17:25 | disposition home or self-care (01) ==
LOC: ERS 12:43
DX: R10.30 Lower abdominal pain, unspecified (principal); I13.0 Hypertensive heart and chronic kidney disease with heart failure and stage 1 through stage 4 chronic kidney disease, or unspecified chronic kidney disease; N18.9 Chronic kidney disease, unspecified; E78.5 Hyperlipidemia, unspecified; Z86.718 Personal history of other venous thrombosis and embolism; Z87.891 Personal history of nicotine dependence; Z79.01 Long term (current) use of anticoagulants; Z79.899 Other long term (current) drug therapy
CPT/HCPCS: 36415; 71045; 74176; 80053; 81003; 81015; 82553; 84484; 85025; 93005

== ENCOUNTER 2021-12-02 10:35 | Outpatient (CLI) | payer MEDICARE, MEDICAID | END 2021-12-02 10:36 | disposition home or self-care (01) | LOC: BICMAMMO 10:35 | PROVIDERS: ATTEND Emergency Medicine | DX: Z12.31 Encounter for screening mammogram for malignant neoplasm of breast (principal); Z13.820 Encounter for screening for osteoporosis | CPT/HCPCS: 77063; 77067; 77080 ==

== ENCOUNTER 2022-01-29 13:32 | Observation (INO) | payer MEDICARE, MEDICAID ==
[2022-01-29 14:11] LABS: #Basophils 0.1 thou/uL (0.0-0.2); #Eosinphils 0.1 thou/uL (0.0-0.7); #Lymphocytes 1.4 thou/uL (1.20-3.40); #Monocytes 0.5 thou/uL (0.11-0.59); #Neutrophils 4.6 thou/uL (1.40-6.50); %Basophils 0.9 % (0.0-1.0); %Eosinophils 1.3 % (0.0-10.0); %Lymphocytes 20.9 % (21.0-51.0); Hemoglobin 9.4 g/dL (12.0-16.0); Mean Corpuscular HGB CONC 33.1 g/dL (32.0-36.0); Mean Corpuscular Hemoglobin 27.6 pg (27.0-31.0); Mean Corpuscular Volume 83.5 fL (78.0-98.0); Mean Platelet Volume 9.3 fL (7.4-10.4); Platelet Count 233 thou/uL (130-400); RBC Distribution Width 13.1 % (11.5-14.5); Red Blood Cell (RBC) Count 3.39 mill/uL (4.20-5.40); White Blood Cell (WBC) Count 6.6 thou/uL (4.8-10.8)
[2022-01-29 14:27] LABS: ALT (SGPT) 9 U/L (8-55); AST (SGOT) 9 U/L (5-34); Albumin 3.8 g/dL (3.4-4.8); Alkaline Phosphatase 65 U/L (40-110); Anion Gap 15 mmol/L (10-20); BUN (Urea Nitrogen) 60 mg/dL (9.8-20.1); Bilirubin, Total 0.4 mg/dL (0.2-1.2); Calc. Creatinine Clearance 0 mL/min (70-130); Calcium 9.8 mg/dL (7.8-10.44); Carbon Dioxide 22 mmol/L (23-31); Chloride 106 mmol/L (98-107); Estimated GFR 11; Globulin 2.6 g/dL (2.4-3.5); Glucose 180 mg/dL (83-110); Potassium 4.3 mmol/L (3.5-5.1); Protein, Total 6.4 g/dL (5.8-8.1); Sodium 139 mmol/L (136-145)
[2022-01-29] MEDS ORDERED: Acetaminophen 325 MG TAB PO PRN (15:35)
[2022-01-29] MEDS ORDERED: Lactated Ringer's 1,000 ML IV SCH (15:45)
[2022-01-29 17:15] VITALS: BMI 27.1
[2022-01-29 18:54] LABS: Troponin I 0.013 ng/mL (< 0.028)
[2022-01-29] MEDS ORDERED: Preparation H HC 1% Cream 26 GM TUBE TOP PRN (20:46)
[2022-01-29] MEDS ORDERED: Atorvastatin Calcium 20 MG TAB PO SCH (21:00)
[2022-01-29] MEDS: Calcitriol 0.25 MCG CAP PO SCH (21:26)
[2022-01-29] MEDS: cloNIDine 0.3 MG TAB PO SCH (21:26)
[2022-01-29] MEDS: Heparin 5,000 UNITS/ML VIAL SC SCH (21:26)
[2022-01-29] MEDS: Carvedilol 25 MG TAB PO SCH (21:26)
[2022-01-29] MEDS: hydrALAZINE 25 MG TAB PO SCH (21:27)
[2022-01-30 04:50] LABS: #Eosinphils 0.1 thou/uL (0.0-0.7); #Lymphocytes 1.8 thou/uL (1.20-3.40); #Monocytes 0.6 thou/uL (0.11-0.59); #Neutrophils 4.8 thou/uL (1.40-6.50); %Basophils 0.4 % (0.0-1.0); %Eosinophils 1.7 % (0.0-10.0); %Lymphocytes 24.4 % (21.0-51.0); %Monocytes 8.6 % (0.0-10.0); %Neutrophils 64.8 % (42.0-75.0); Hemoglobin 8.7 g/dL (12.0-16.0); Mean Corpuscular HGB CONC 32.9 g/dL (32.0-36.0); Mean Corpuscular Hemoglobin 27.6 pg (27.0-31.0); Mean Corpuscular Volume 84.1 fL (78.0-98.0); Platelet Count 242 thou/uL (130-400); Red Blood Cell (RBC) Count 3.14 mill/uL (4.20-5.40); White Blood Cell (WBC) Count 7.5 thou/uL (4.8-10.8)
[2022-01-30 05:16] LABS: Anion Gap 14 mmol/L (10-20); BUN (Urea Nitrogen) 55 mg/dL (9.8-20.1); Calc. Creatinine Clearance 17 mL/min (70-130); Calcium 9.7 mg/dL (7.8-10.44); Carbon Dioxide 25 mmol/L (23-31); Chloride 107 mmol/L (98-107); Estimated GFR 13; Glucose 120 mg/dL (83-110); Iron 42 ug/dL (50-170); Iron Binding Capacity, Total 199 mcg/dL (265-497); Potassium 3.6 mmol/L (3.5-5.1); Sodium 142 mmol/L (136-145)
[2022-01-30] MEDS ORDERED: NIFEdipine XL 60 MG TAB PO SCH (09:00)
[2022-01-30] MEDS ORDERED: Lactated Ringer's 500 ML IV SCH (10:30)
[2022-01-30] MEDS: Carvedilol 25 MG TAB PO SCH (10:51)
[2022-01-30] MEDS: Calcitriol 0.25 MCG CAP PO SCH (10:51)
[2022-01-30] MEDS: cloNIDine 0.3 MG TAB PO SCH ×2 (10:52→15:06)
[2022-01-30] MEDS: hydrALAZINE 25 MG TAB PO SCH ×2 (10:52→15:06)
[2022-01-30] MEDS: Heparin 5,000 UNITS/ML VIAL SC SCH ×2 (10:53→15:06)
[2022-01-30] MEDS ORDERED: Hydrocortisone 1% Cream 30 GM TUBE TOP PRN (11:16)
[2022-01-30] MEDS ORDERED: hydrALAZINE 20 MG/ML VIAL SLOW IVP SCH (12:15)
[2022-01-30 15:27] LABS: Anion Gap 16 mmol/L (10-20); BUN (Urea Nitrogen) 50 mg/dL (9.8-20.1); Calc. Creatinine Clearance 18 mL/min (70-130); Calcium 9.7 mg/dL (7.8-10.44); Carbon Dioxide 22 mmol/L (23-31); Chloride 104 mmol/L (98-107); Estimated GFR 14; Glucose 130 mg/dL (83-110); Potassium 4.1 mmol/L (3.5-5.1); Sodium 138 mmol/L (136-145)
[2022-01-30 15:43] VITALS: BP 133/74; TEMP 98.3
[2022-01-30] MEDS ORDERED: Furosemide 20 MG TAB PO SCH (17:45)
== END 2022-01-30 18:20 | disposition home or self-care (01) ==
LOC: ERS 13:32 → 2NO 15:17
PROVIDERS: ADMIT Family Medicine; ATTEND Family Medicine
DX: I13.2 Hypertensive heart and chronic kidney disease with heart failure and with stage 5 chronic kidney disease, or end stage renal disease (principal); N18.5 Chronic kidney disease, stage 5; I50.30 Unspecified diastolic (congestive) heart failure; N17.9 Acute kidney failure, unspecified; D63.1 Anemia in chronic kidney disease; R53.83 Other fatigue; K64.9 Unspecified hemorrhoids; E78.5 Hyperlipidemia, unspecified; Z87.891 Personal history of nicotine dependence; Z79.899 Other long term (current) drug therapy; Z88.8 Allergy status to other drugs, medicaments and biological substances; Z20.822 Contact with and (suspected) exposure to COVID-19
CPT/HCPCS: 71045; 80048 ×2; 82728; 82962; 83540; 83550; 83880; 84484 ×2; 85025; 93005; 96360; 99285; U0003; U0005; 36415; 36416; 80053; 84443; 96361; 96367; 96372; 96374; G0378; J0360; J1644; J7120

== ENCOUNTER 2022-03-18 14:17 | Outpatient (CLI) | payer MEDICARE, MEDICAID | END 2022-03-18 14:18 | disposition home or self-care (01) | LOC: ULT 14:17 | PROVIDERS: ATTEND Internal Medicine Nephrology | DX: N18.5 Chronic kidney disease, stage 5 (principal) | CPT/HCPCS: 93970 ==

== ENCOUNTER 2022-05-08 11:41 | Inpatient (IN) | payer MEDICARE, MEDICAID ==
[2022-05-08] MEDS ORDERED: Aspirin Chewable 81 MG TAB ONE (12:09)
[2022-05-08] MEDS ORDERED: Furosemide 40 MG/4 ML VIAL ONE (12:10)
[2022-05-08] MEDS ORDERED: Nitroglycerin 2% Ointment 1 INCH/1 GM Packet ONE (12:10)
[2022-05-08 12:53] LABS: #Lymphocytes 0.9 thou/uL (1.20-3.40); #Monocytes 0.4 thou/uL (0.11-0.59); #Neutrophils 9.2 thou/uL (1.40-6.50); %Basophils 0.2 % (0.0-1.0); %Eosinophils 0.2 % (0.0-10.0); %Lymphocytes 8.1 % (21.0-51.0); %Monocytes 3.7 % (0.0-10.0); %Neutrophils 87.8 % (42.0-75.0); Hemoglobin 9.2 g/dL (12.0-16.0); Mean Corpuscular Hemoglobin 25.7 pg (27.0-31.0); Mean Corpuscular Volume 82.9 fl (78.0-98.0); Mean Platelet Volume 10.5 fL (7.4-10.4); Platelet Count 216 thou/uL (130-400); RBC Distribution Width 16.5 % (11.5-14.5); Red Blood Cell (RBC) Count 3.58 mill/uL (4.20-5.40); White Blood Cell (WBC) Count 10.5 thou/uL (4.8-10.8)
[2022-05-08 13:16] LABS: ALT (SGPT) 14 U/L (8-55); AST (SGOT) 20 U/L (5-34); Albumin 3.8 g/dL (3.4-4.8); Alkaline Phosphatase 68 U/L (40-110); Anion Gap 15 mmol/L (10-20); BUN (Urea Nitrogen) 55 mg/dL (9.8-20.1); Bilirubin, Total 0.7 mg/dL (0.2-1.2); CK (CPK) 47 U/L (29-168); Calc. Creatinine Clearance 0 mL/min (70-130); Calcium 9.7 mg/dL (7.8-10.44); Carbon Dioxide 15 mmol/L (23-31); Chloride 115 mmol/L (98-107); Estimated GFR 13; Globulin 2.4 g/dL (2.4-3.5); Glucose 134 mg/dL (83-110); Lipase 12 U/L (8-78); Potassium 4.1 mmol/L (3.5-5.1); Protein, Total 6.2 g/dL (5.8-8.1); Sodium 141 mmol/L (136-145)
[2022-05-08] MEDS ORDERED: Ondansetron PF 4 MG/2 ML Vial IVP PRN (15:19)
[2022-05-08 16:49] VITALS: BMI 26.8
[2022-05-08] MEDS ORDERED: Epoetin (ESRD) 10,000 UNITS/ML VIAL SC SCH (17:00)
[2022-05-08] MEDS ORDERED: Furosemide 40 MG/4 ML VIAL SLOW IVP SCH (19:00)
[2022-05-08] MEDS: Calcitriol 0.25 MCG CAP PO SCH (19:42)
[2022-05-08] MEDS: Atorvastatin Calcium 20 MG TAB PO SCH (19:42)
[2022-05-08] MEDS: cloNIDine 0.2 MG TAB PO SCH (19:43)
[2022-05-08] MEDS: Carvedilol 25 MG TAB PO SCH (19:43)
[2022-05-08] MEDS: hydrALAZINE 25 MG TAB PO SCH (19:43)
[2022-05-09 05:47] LABS: #Eosinphils 0.1 thou/uL (0.0-0.7); #Lymphocytes 1.1 thou/uL (1.20-3.40); #Monocytes 0.7 thou/uL (0.11-0.59); #Neutrophils 4.9 thou/uL (1.40-6.50); %Basophils 0.2 % (0.0-1.0); %Eosinophils 0.9 % (0.0-10.0); %Lymphocytes 16.5 % (21.0-51.0); %Monocytes 10.7 % (0.0-10.0); %Neutrophils 71.7 % (42.0-75.0); Hemoglobin 8.7 g/dL (12.0-16.0); Mean Corpuscular HGB CONC 32.6 g/dL (32.0-36.0); Mean Corpuscular Hemoglobin 27.3 pg (27.0-31.0); Mean Corpuscular Volume 83.9 fl (78.0-98.0); Mean Platelet Volume 9.5 fL (7.4-10.4); Platelet Count 225 thou/uL (130-400); RBC Distribution Width 16.6 % (11.5-14.5); Red Blood Cell (RBC) Count 3.18 mill/uL (4.20-5.40); White Blood Cell (WBC) Count 6.8 thou/uL (4.8-10.8)
[2022-05-09 05:53] LABS: Phosphorus 4.3 mg/dL (2.3-4.7)
[2022-05-09 05:56] LABS: Anion Gap 14 mmol/L (10-20); BUN (Urea Nitrogen) 60 mg/dL (9.8-20.1); Calc. Creatinine Clearance 15 mL/min (70-130); Calcium 9.3 mg/dL (7.8-10.44); Carbon Dioxide 18 mmol/L (23-31); Chloride 116 mmol/L (98-107); Estimated GFR 11; Glucose 96 mg/dL (83-110); Potassium 4.2 mmol/L (3.5-5.1); Sodium 144 mmol/L (136-145)
[2022-05-09] MEDS: Furosemide 40 MG/4 ML VIAL SLOW IVP SCH ×2 (06:14→14:34)
[2022-05-09] MEDS ORDERED: FLU VACC QS2022-23(65YR UP)/PF 240 MCG/0.7 ML SYRINGE IM ONE (09:00)
[2022-05-09] MEDS ORDERED: Enoxaparin Sodium 40 MG/0.4 ML SYRINGE SC SCH (09:00)
[2022-05-09] MEDS ORDERED: NIFEdipine XL 90 MG TAB PO SCH (09:00)
[2022-05-09] MEDS: NIFEdipine XL 60 MG TAB PO SCH (09:44)
[2022-05-09] MEDS: Calcitriol 0.25 MCG CAP PO SCH ×2 (09:44→20:38)
[2022-05-09] MEDS: hydrALAZINE 25 MG TAB PO SCH ×3 (09:44→20:37)
[2022-05-09] MEDS: Carvedilol 25 MG TAB PO SCH ×2 (09:45→20:37)
[2022-05-09] MEDS: Heparin 5,000 UNITS/ML VIAL SC SCH ×3 (09:45→20:38)
[2022-05-09] MEDS: cloNIDine 0.2 MG TAB PO SCH ×3 (09:45→20:38)
[2022-05-09] MEDS: Atorvastatin Calcium 20 MG TAB PO SCH (20:37)
[2022-05-10] MEDS: Furosemide 40 MG/4 ML VIAL SLOW IVP SCH (05:09)
[2022-05-10 06:26] LABS: #Eosinphils 0.1 thou/uL (0.0-0.7); #Lymphocytes 1.3 thou/uL (1.20-3.40); #Monocytes 0.6 thou/uL (0.11-0.59); #Neutrophils 4.3 thou/uL (1.40-6.50); %Basophils 0.7 % (0.0-1.0); %Eosinophils 1.7 % (0.0-10.0); %Lymphocytes 20.2 % (21.0-51.0); %Monocytes 9.3 % (0.0-10.0); Hemoglobin 8.7 g/dL (12.0-16.0); Mean Corpuscular HGB CONC 30.9 g/dL (32.0-36.0); Mean Corpuscular Hemoglobin 25.5 pg (27.0-31.0); Mean Corpuscular Volume 82.5 fl (78.0-98.0); Platelet Count 236 thou/uL (130-400); Red Blood Cell (RBC) Count 3.43 mill/uL (4.20-5.40); White Blood Cell (WBC) Count 6.3 thou/uL (4.8-10.8)
[2022-05-10 06:39] LABS: Anion Gap 15 mmol/L (10-20); BUN (Urea Nitrogen) 72 mg/dL (9.8-20.1); Calc. Creatinine Clearance 13 mL/min (70-130); Calcium 9.3 mg/dL (7.8-10.44); Carbon Dioxide 18 mmol/L (23-31); Chloride 116 mmol/L (98-107); Estimated GFR 10; Glucose 93 mg/dL (83-110); Potassium 3.8 mmol/L (3.5-5.1); Sodium 145 mmol/L (136-145)
[2022-05-10] MEDS: NIFEdipine XL 60 MG TAB PO SCH (08:06)
[2022-05-10] MEDS: cloNIDine 0.2 MG TAB PO SCH ×3 (08:06→20:11)
[2022-05-10] MEDS: hydrALAZINE 25 MG TAB PO SCH ×3 (08:06→20:10)
[2022-05-10] MEDS: Calcitriol 0.25 MCG CAP PO SCH ×2 (08:06→20:11)
[2022-05-10] MEDS: Heparin 5,000 UNITS/ML VIAL SC SCH ×3 (08:07→20:11)
[2022-05-10] MEDS: Carvedilol 25 MG TAB PO SCH ×2 (08:07→20:11)
[2022-05-10] MEDS ORDERED: Metolazone 5 MG TAB PO SCH (09:00)
[2022-05-10] MEDS ORDERED: Furosemide 40 MG/4 ML VIAL SLOW IVP SCH (09:00)
[2022-05-10] MEDS: Furosemide 100 MG/10 ML VIAL SLOW IVP SCH (15:58)
[2022-05-10] MEDS: Atorvastatin Calcium 20 MG TAB PO SCH (20:11)
[2022-05-11] MEDS: Furosemide 100 MG/10 ML VIAL SLOW IVP SCH ×2 (05:41→14:19)
[2022-05-11 06:15] LABS: #Eosinphils 0.1 thou/uL (0.0-0.7); #Lymphocytes 1.5 thou/uL (1.20-3.40); #Monocytes 0.8 thou/uL (0.11-0.59); #Neutrophils 3.7 thou/uL (1.40-6.50); %Basophils 0.5 % (0.0-1.0); %Eosinophils 2.1 % (0.0-10.0); %Monocytes 13.4 % (0.0-10.0); %Neutrophils 59.9 % (42.0-75.0); Hemoglobin 8.5 g/dL (12.0-16.0); Mean Corpuscular HGB CONC 30.1 g/dL (32.0-36.0); Mean Corpuscular Volume 82.9 fl (78.0-98.0); Mean Platelet Volume 10.3 fL (7.4-10.4); Platelet Count 270 thou/uL (130-400); RBC Distribution Width 16.8 % (11.5-14.5); White Blood Cell (WBC) Count 6.2 thou/uL (4.8-10.8)
[2022-05-11 06:32] LABS: Anion Gap 14 mmol/L (10-20); Carbon Dioxide 22 mmol/L (23-31); Chloride 113 mmol/L (98-107); Potassium 3.7 mmol/L (3.5-5.1); Sodium 145 mmol/L (136-145)
[2022-05-11 06:33] LABS: BUN (Urea Nitrogen) 72 mg/dL (9.8-20.1); Calc. Creatinine Clearance 13 mL/min (70-130); Calcium 9.6 mg/dL (7.8-10.44); Estimated GFR 10; Glucose 90 mg/dL (83-110)
[2022-05-11] MEDS ORDERED: Moisturizing Cream (Eucerin) 113 GM JAR TOP PRN (08:01)
[2022-05-11] MEDS ORDERED: Sodium Chloride 0.65% Nasal 44 ML BOT EA NARE PRN (08:01)
[2022-05-11] MEDS ORDERED: Labetalol HCl 100 MG/20 ML VIAL SLOW IVP PRN (08:01)
[2022-05-11] MEDS ORDERED: hydrALAZINE 20 MG/ML VIAL SLOW IVP PRN (08:01)
[2022-05-11] MEDS ORDERED: Artificial Tear Sol 15 ML BOT EA EYE PRN (08:01)
[2022-05-11] MEDS ORDERED: Loratadine 10 MG TAB PO PRN (08:01)
[2022-05-11] MEDS ORDERED: Acetaminophen 500 MG TAB PO PRN (08:01)
[2022-05-11] MEDS ORDERED: NIFEdipine XL 60 MG TAB PO SCH (08:02)
[2022-05-11] MEDS ORDERED: NIFEdipine XL 90 MG TAB PO SCH (09:00)
[2022-05-11] MEDS: Carvedilol 25 MG TAB PO SCH (09:06)
[2022-05-11] MEDS: Calcitriol 0.25 MCG CAP PO SCH (09:06)
[2022-05-11] MEDS: hydrALAZINE 25 MG TAB PO SCH (09:06)
[2022-05-11] MEDS: cloNIDine 0.2 MG TAB PO SCH (09:07)
[2022-05-11] MEDS: Heparin 5,000 UNITS/ML VIAL SC SCH (09:07)
[2022-05-11 16:52] VITALS: BP 151/74; TEMP 97.9
== END 2022-05-11 14:35 | disposition home or self-care (01) | DRG 291 ==
LOC: ERS 11:41 → SURG A 14:18
PROVIDERS: ADMIT Internal Medicine; ATTEND Family Medicine
DX: I13.2 Hypertensive heart and chronic kidney disease with heart failure and with stage 5 chronic kidney disease, or end stage renal disease (principal); J96.01 Acute respiratory failure with hypoxia; N18.5 Chronic kidney disease, stage 5; N17.9 Acute kidney failure, unspecified; E87.20 Acidosis, unspecified; E78.5 Hyperlipidemia, unspecified; F41.9 Anxiety disorder, unspecified; D63.1 Anemia in chronic kidney disease; E78.00 Pure hypercholesterolemia, unspecified; Z90.49 Acquired absence of other specified parts of digestive tract; Z88.8 Allergy status to other drugs, medicaments and biological substances; Z79.899 Other long term (current) drug therapy; Z90.710 Acquired absence of both cervix and uterus; Z87.891 Personal history of nicotine dependence; Z86.718 Personal history of other venous thrombosis and embolism; I50.9 Heart failure, unspecified
CPT/HCPCS: 36415; 71045; 80048; 80053; 82550; 83690; 83880; 83970; 84100; 84484; 85025; 90471; 90662; 90732; 93005; 96374; G0008; G0009; J1644; J1940

== ENCOUNTER 2022-06-08 12:09 | Outpatient (CLI) | payer MEDICARE, MEDICAID | END 2022-06-08 12:10 | disposition home or self-care (01) | LOC: RAD 12:09 | PROVIDERS: ATTEND Internal Medicine Nephrology | DX: I12.0 Hypertensive chronic kidney disease with stage 5 chronic kidney disease or end stage renal disease (principal); N18.5 Chronic kidney disease, stage 5 | CPT/HCPCS: 36415; 71046; 80048; 82040; 86704; 86706; 86803; 87340 ==

== ENCOUNTER 2022-09-14 06:55 | Day surgery (SDC) | payer MEDICARE, MEDICAID ==
[2022-09-13 13:56] VITALS: BMI 25.4
[2022-09-14] MEDS ORDERED: Sodium Bicarbonate 2.5 MEQ/5 ML VIAL ONE (07:25)
[2022-09-14] MEDS ORDERED: Lidocaine 1% PF 5 ML VIAL ONE (07:25)
[2022-09-14 07:41] VITALS: BP 145/75; TEMP 98.2
[2022-09-14] MEDS ORDERED: Iopamidol 300 61% 100 ML VIAL FS ONE (09:36)
== END 2022-09-14 09:47 | disposition home or self-care (01) ==
LOC: SPEC 06:55
PROVIDERS: ATTEND Internal Medicine Nephrology
PROC: B51W1ZZ Fluoroscopy of Dialysis Shunt/Fistula using Low Osmolar Contrast (ICD-10-PCS; principal; 2022-09-14)
DX: N18.6 End stage renal disease (principal); Z88.8 Allergy status to other drugs, medicaments and biological substances; Z99.2 Dependence on renal dialysis
CPT/HCPCS: 36901

== ENCOUNTER 2022-12-30 13:10 | Outpatient (CLI) | payer MEDICARE, MEDICAID | END 2022-12-30 13:11 | disposition home or self-care (01) | LOC: BICMAMMO 13:10 | PROVIDERS: ATTEND Emergency Medicine | DX: Z12.31 Encounter for screening mammogram for malignant neoplasm of breast (principal) | CPT/HCPCS: 77063; 77067 ==

== ENCOUNTER 2023-05-15 04:12 | Emergency (ER) | payer MEDICARE, OTHER ==
[2023-05-15] MEDS ORDERED: hydrALAZINE 20 MG/ML VIAL ONE (04:24)
[2023-05-15] MEDS ORDERED: Ipratropium/Albuterol 3 ML NEB ONE (04:27)
[2023-05-15] MEDS ORDERED: Albuterol 2.5 MG/0.5 ML NEB ONE (04:30)
[2023-05-15] MEDS ORDERED: Ipratropium Bromide 2.5 ml Neb ONE (04:31)
[2023-05-15 04:51] LABS: #Basophils 0.1 thou/uL (0.0-0.2); #Eosinphils 0.3 thou/uL (0.0-0.7); #Monocytes 1.9 thou/uL (0.11-0.59); #Neutrophils 10.9 thou/uL (1.40-6.50); %Basophils 0.8 % (0.0-1.0); %Eosinophils 1.8 % (0.0-10.0); %Lymphocytes 15.8 % (21.0-51.0); %Monocytes 11.8 % (0.0-10.0); %Neutrophils 68.9 % (42.0-75.0); Hematocrit 25.1 % (36.0-47.0); Hemoglobin 8.2 g/dL (12.0-16.0); Mean Corpuscular HGB CONC 32.7 g/dL (32.0-36.0); Mean Corpuscular Hemoglobin 28.7 pg (27.0-31.0); Mean Corpuscular Volume 87.8 fl (78.0-98.0); Mean Platelet Volume 10.8 fL (7.4-10.4); Platelet Count 292 10x3/uL (130-400); Red Blood Cell (RBC) Count 2.86 mill/uL (4.20-5.40); White Blood Cell (WBC) Count 15.9 10x3/uL (4.8-10.8)
[2023-05-15] MEDS ORDERED: Sodium Chloride 0.9% 250 ML 250 ML ONE (05:02)
[2023-05-15] MEDS ORDERED: niCARdipine 25 MG/10 ML SDV ONE ×2 (05:02→06:34)
[2023-05-15 05:14] LABS: ALT (SGPT) 36 U/L (8-55); AST (SGOT) 33 U/L (5-34); Albumin 3.7 g/dL (3.4-4.8); Alkaline Phosphatase 69 U/L (40-110); Anion Gap 17 mmol/L (10-20); BUN (Urea Nitrogen) 25 mg/dL (9.8-20.1); Bilirubin, Total 0.6 mg/dL (0.2-1.2); Calc. Creatinine Clearance 0 mL/min (70-130); Carbon Dioxide 26 mmol/L (23-31); Chloride 94 mmol/L (98-107); Estimated GFR 8; Globulin 1.9 g/dL (2.4-3.5); Glucose 147 mg/dL (83-110); Magnesium 2.7 mg/dL (1.6-2.6); Potassium 3.2 mmol/L (3.5-5.1); Protein, Total 5.6 g/dL (5.8-8.1); Sodium 134 mmol/L (136-145)
[2023-05-15 05:18] LABS: Troponin I 0.036 ng/mL (< 0.028)
[2023-05-15 05:57] LABS: SARS-CoV-2 NAA Rapid Test Not Detected (NotDetected)
== END 2023-05-15 06:42 | disposition short-term general hospital (02) ==
LOC: ERS 04:12
DX: J81.0 Acute pulmonary edema (principal); J98.01 Acute bronchospasm; I10 Essential (primary) hypertension; J80 Acute respiratory distress syndrome; E78.00 Pure hypercholesterolemia, unspecified; Z87.891 Personal history of nicotine dependence; Z20.822 Contact with and (suspected) exposure to COVID-19
CPT/HCPCS: 0240U; 71045; 80053; 83605; 83735; 83880; 84484; 85025; 87040; 93005; 94640; 94660; J0360; 36415; 96365; 96374; J7050; J7611; J7620

== ENCOUNTER 2023-12-14 11:59 | Inpatient (IN) | payer MEDICARE, MEDICAID ==
[2023-12-14 12:43] LABS: #Basophils 0.04 10x3/uL (0.0-0.2); #Eosinphils Less than 0.03 10x3/uL (0.0-0.7); %Basophils 0.5 % (0.0-1.0); %Eosinophils 0.3 % (0.0-10.0); %Lymphocytes 13.1 % (21.0-51.0); %Monocytes 11.1 % (0.0-10.0); %Neutrophils 72.4 % (42.0-75.0); Hematocrit 38.4 % (36.0-47.0); Hemoglobin 12.2 g/dL (12.0-16.0); Mean Corpuscular HGB CONC 31.8 g/dL (32.0-36.0); Mean Corpuscular Hemoglobin 27.2 pg (27.0-31.0); Mean Corpuscular Volume 85.7 fL (78.0-98.0); Mean Platelet Volume 12.5 fL (7.4-10.4); Platelet Count 222 10x3/uL (130-400); RBC Distribution Width 15.5 % (11.5-14.5); Red Blood Cell (RBC) Count 4.48 mill/uL (4.20-5.40)
[2023-12-14 12:53] LABS: ALT (SGPT) 72 U/L (8-55); AST (SGOT) 40 U/L (5-34); Albumin 3.6 g/dL (3.4-4.8); Alkaline Phosphatase 98 U/L (40-110); Anion Gap 13 mmol/L (10-20); BUN (Urea Nitrogen) 24 mg/dL (9.8-20.1); Bilirubin, Total 0.8 mg/dL (0.2-1.2); Calc. Creatinine Clearance 0 mL/min (70-130); Calcium 9.2 mg/dL (7.8-10.44); Carbon Dioxide 21 mmol/L (23-31); Chloride 114 mmol/L (98-107); Estimated GFR 55; Globulin 2.1 g/dL (2.4-3.5); Glucose 148 mg/dL (83-110); Protein, Total 5.7 g/dL (5.8-8.1); Sodium 144 mmol/L (136-145)
[2023-12-14 12:56] LABS: Troponin I 0.015 ng/mL (< 0.028)
[2023-12-14] MEDS ORDERED: Furosemide 20 MG (2 mL) VIAL ONE (15:57)
[2023-12-14 16:56] VITALS: BMI 30.6
[2023-12-14] MEDS: NIFEdipine XL 30 MG ER.TAB PO SCH (17:00)
[2023-12-14] MEDS ORDERED: Famotidine 20 MG TAB PO PRN (17:11)
[2023-12-14] MEDS: Furosemide 20 MG (2 mL) VIAL SLOW IVP SCH (17:32)
[2023-12-14] MEDS ORDERED: Torsemide 10 MG TAB PO PRN (17:37)
[2023-12-14] MEDS: Carvedilol 25 MG TAB PO SCH (17:47)
[2023-12-14 19:32] LABS: Troponin I 0.013 ng/mL (< 0.028)
[2023-12-14] MEDS: K-Phos Neutral 250 MG TAB PO SCH (20:36)
[2023-12-14] MEDS: Atorvastatin Calcium 20 MG TAB PO SCH (20:37)
[2023-12-14] MEDS: Magnesium Oxide 400 MG TAB PO SCH (20:37)
[2023-12-14] MEDS: Tacrolimus 0.5 MG CAP PO SCH (20:37)
[2023-12-14] MEDS: Tacrolimus 1 MG CAP PO SCH (20:37)
[2023-12-14] MEDS ORDERED: Carvedilol 25 MG TAB PO SCH (21:00)
[2023-12-14 22:20] LABS: Troponin I 0.016 ng/mL (< 0.028)
[2023-12-15 04:38] LABS: #Basophils 0.04 10x3/uL (0.0-0.2); %Basophils 0.5 % (0.0-1.0); %Eosinophils 0.9 % (0.0-10.0); %Lymphocytes 26.2 % (21.0-51.0); %Monocytes 12.1 % (0.0-10.0); %Neutrophils 58.9 % (42.0-75.0); RBC Distribution Width 15.5 % (11.5-14.5)
[2023-12-15 05:01] LABS: ALT (SGPT) 53 U/L (8-55); AST (SGOT) 18 U/L (5-34); Albumin 3.4 g/dL (3.4-4.8); Alkaline Phosphatase 94 U/L (40-110); Anion Gap 13 mmol/L (10-20); BUN (Urea Nitrogen) 24 mg/dL (9.8-20.1); Bilirubin, Total 0.8 mg/dL (0.2-1.2); Calc. Creatinine Clearance 56 mL/min (70-130); Calcium 9.4 mg/dL (7.8-10.44); Carbon Dioxide 25 mmol/L (23-31); Chloride 108 mmol/L (98-107); Estimated GFR 49; Globulin 2.1 g/dL (2.4-3.5); Glucose 96 mg/dL (83-110); Potassium 3.2 mmol/L (3.5-5.1); Protein, Total 5.5 g/dL (5.8-8.1); Sodium 143 mmol/L (136-145)
[2023-12-15 05:45] LABS: Hematocrit 38.7 % (36.0-47.0); Hemoglobin 12.2 g/dL (12.0-16.0); Mean Corpuscular HGB CONC 31.5 g/dL (32.0-36.0); Mean Corpuscular Hemoglobin 27.2 pg (27.0-31.0); Mean Corpuscular Volume 86.4 fL (78.0-98.0); Mean Platelet Volume 12.7 fL (7.4-10.4); Platelet Count 227 10x3/uL (130-400); Red Blood Cell (RBC) Count 4.48 mill/uL (4.20-5.40)
[2023-12-15 08:12] LABS: Magnesium 1.4 mg/dL (1.6-2.6); Phosphorus 3.3 mg/dL (2.3-4.7)
[2023-12-15] MEDS: NIFEdipine XL 30 MG ER.TAB PO SCH (08:20)
[2023-12-15] MEDS: Calcium Carbonate 500 MG ChewTAB PO SCH (08:20)
[2023-12-15] MEDS: Sulfameth/Trimethoprim SS 400-80MG TAB PO SCH (08:20)
[2023-12-15] MEDS: Aspirin 81 mg Enteric Coated Tablet PO SCH (08:21)
[2023-12-15] MEDS: Carvedilol 25 MG TAB PO SCH (08:21)
[2023-12-15] MEDS: Cholecalciferol 1,000 UNITS (25 MCG) TAB PO SCH (08:21)
[2023-12-15] MEDS: predniSONE 5 MG TAB PO SCH (08:21)
[2023-12-15] MEDS: Cinacalcet HCl 30 MG TAB PO SCH (08:21)
[2023-12-15] MEDS: Potassium Chloride 20 MEQ TAB PO SCH ×2 (08:21)
[2023-12-15] MEDS: Enoxaparin 40 MG (0.4 mL) SYRINGE SC SCH (08:21)
[2023-12-15] MEDS ORDERED: Polyethylene Glycol 3350 17 GM Packet PO PRN (09:10)
[2023-12-15] MEDS: Magnesium 2 GM/50 ML(in water) 2 GM in Premix 1 BAG IVPB SCH (11:59)
[2023-12-15] MEDS: BIOTIN 5000 MCG PO SCH (13:13)
[2023-12-15] MEDS: Acetaminophen 325 MG TAB PO PRN (20:08)
[2023-12-16 04:17] LABS: #Basophils 0.05 10x3/uL (0.0-0.2); %Basophils 0.6 % (0.0-1.0); %Lymphocytes 24.3 % (21.0-51.0); %Monocytes 12.1 % (0.0-10.0); %Neutrophils 61.1 % (42.0-75.0); Hematocrit 39.3 % (36.0-47.0); Hemoglobin 12.4 g/dL (12.0-16.0); Mean Corpuscular HGB CONC 31.6 g/dL (32.0-36.0); Mean Corpuscular Hemoglobin 27.3 pg (27.0-31.0); Mean Corpuscular Volume 86.6 fL (78.0-98.0); Mean Platelet Volume 12.4 fL (7.4-10.4); Platelet Count 200 10x3/uL (130-400); RBC Distribution Width 15.5 % (11.5-14.5); Red Blood Cell (RBC) Count 4.54 mill/uL (4.20-5.40)
[2023-12-16 04:51] LABS: ALT (SGPT) 37 U/L (8-55); AST (SGOT) 12 U/L (5-34); Albumin 3.3 g/dL (3.4-4.8); Alkaline Phosphatase 91 U/L (40-110); Anion Gap 15 mmol/L (10-20); BUN (Urea Nitrogen) 28 mg/dL (9.8-20.1); Bilirubin, Total 0.6 mg/dL (0.2-1.2); Calc. Creatinine Clearance 52 mL/min (70-130); Calcium 8.7 mg/dL (7.8-10.44); Carbon Dioxide 25 mmol/L (23-31); Chloride 109 mmol/L (98-107); Estimated GFR 45; Globulin 1.9 g/dL (2.4-3.5); Glucose 92 mg/dL (83-110); Magnesium 2.2 mg/dL (1.6-2.6); Potassium 3.9 mmol/L (3.5-5.1); Protein, Total 5.2 g/dL (5.8-8.1); Sodium 145 mmol/L (136-145)
[2023-12-16 08:07] VITALS: BP 176/74; TEMP 97.8
[2023-12-19 05:37] LABS: Tacrolimus 4.6 ng/mL (2.0-20.0)
== END 2023-12-16 12:12 | disposition home or self-care (01) | DRG 291 ==
LOC: ERS 11:59 → 2NO 16:06 → OBSVTOIN 12-15 16:02
PROVIDERS: ADMIT Family Medicine; ATTEND Family Medicine
DX: I13.2 Hypertensive heart and chronic kidney disease with heart failure and with stage 5 chronic kidney disease, or end stage renal disease (principal); I50.33 Acute on chronic diastolic (congestive) heart failure; E87.20 Acidosis, unspecified; Z94.0 Kidney transplant status; N17.9 Acute kidney failure, unspecified; D63.1 Anemia in chronic kidney disease; E78.5 Hyperlipidemia, unspecified; F41.1 Generalized anxiety disorder; I16.0 Hypertensive urgency; N18.30 Chronic kidney disease, stage 3 unspecified; E88.09 Other disorders of plasma-protein metabolism, not elsewhere classified; E87.6 Hypokalemia; E83.42 Hypomagnesemia; Z79.82 Long term (current) use of aspirin; Z79.899 Other long term (current) drug therapy; Z90.49 Acquired absence of other specified parts of digestive tract; Z90.710 Acquired absence of both cervix and uterus
CPT/HCPCS: 36415; 36416; 71045; 80053; 80197; 83735; 83880; 83970; 84100; 84145; 84484; 85025; 93005; 93306; 96372; 96374; 96375; 96376; G0378; J1650; J1940; J3475; J7507; J7512

== ENCOUNTER 2024-01-17 12:55 | Outpatient (CLI) | payer MEDICARE, MEDICAID | END 2024-01-17 12:56 | disposition home or self-care (01) | LOC: BICMAMMO 12:55 | PROVIDERS: ATTEND Emergency Medicine | DX: Z12.31 Encounter for screening mammogram for malignant neoplasm of breast (principal) | CPT/HCPCS: 77063; 77067 ==

== ENCOUNTER 2024-08-16 17:43 | Emergency (ER) | payer MEDICARE, OTHER | END 2024-08-16 20:21 | disposition home or self-care (01) | LOC: ERS 17:43 | DX: R20.0 Anesthesia of skin (principal); I12.0 Hypertensive chronic kidney disease with stage 5 chronic kidney disease or end stage renal disease; N18.6 End stage renal disease; E78.00 Pure hypercholesterolemia, unspecified; Z87.891 Personal history of nicotine dependence; Z79.82 Long term (current) use of aspirin; Z79.899 Other long term (current) drug therapy; Z94.0 Kidney transplant status; Z86.718 Personal history of other venous thrombosis and embolism ==

== ENCOUNTER 2025-02-05 19:03 | Emergency (ER) | payer MEDICARE, OTHER ==
[2025-02-05 20:04] LABS: #Basophils Less than 0.03 10x3/uL (0.0-0.2); #Eosinophils 0.03 10x3/uL (0.0-0.7); #Monocytes 0.70 10x3/uL (0.11-0.59); #Neutrophils 5.31 10x3/uL (1.40-6.50); %Basophils 0.3 % (0.0-1.0); %Eosinophils 0.4 % (0.0-10.0); %Lymphocytes 16.3 % (21.0-51.0); %Monocytes 9.6 % (0.0-10.0); %Neutrophils 73.0 % (42.0-75.0); Hematocrit 41.3 % (36.0-47.0); Hemoglobin 13.2 g/dL (12.0-16.0); Mean Corpuscular Hemoglobin 27.5 pg (27.0-31.0); Mean Corpuscular Volume 86.0 fL (78.0-98.0); Platelet Count 198 10x3/uL (130-400); Red Blood Cell (RBC) Count 4.80 mill/uL (4.20-5.40); White Blood Cell (WBC) Count 7.28 10x3/uL (4.8-10.8)
[2025-02-05 20:18] LABS: INR-International Normal Ratio 1.0; PTT 27.6 sec (22.9-36.1); Prothrombin Time 13.3 sec (12.0-14.7)
[2025-02-05 20:22] LABS: ALT (SGPT) 9 U/L (Less than 34); AST (SGOT) 17 U/L (11-34); Albumin 3.9 g/dL (3.1-4.5); Alkaline Phosphatase 83 U/L (40-110); Anion Gap 16 mmol/L (10-20); BUN (Urea Nitrogen) 24 mg/dL (9.8-20.1); Bilirubin, Total 0.7 mg/dL (0.3-1.2); Calc. Creatinine Clearance 0 mL/min (70-130); Calcium 9.3 mg/dL (7.8-10.44); Carbon Dioxide 23 mmol/L (23-31); Chloride 108 mmol/L (98-107); Globulin 2.8 g/dL (2.4-3.5); Glucose 97 mg/dL (83-110); Potassium 3.7 mmol/L (3.5-5.1); Sodium 143 mmol/L (136-145)
== END 2025-02-05 21:09 | disposition home or self-care (01) ==
LOC: ERS 19:03
DX: I82.432 Acute embolism and thrombosis of left popliteal vein (principal); I82.412 Acute embolism and thrombosis of left femoral vein; I12.9 Hypertensive chronic kidney disease with stage 1 through stage 4 chronic kidney disease, or unspecified chronic kidney disease; N18.9 Chronic kidney disease, unspecified; E78.5 Hyperlipidemia, unspecified; Z87.891 Personal history of nicotine dependence; Z79.899 Other long term (current) drug therapy; Z94.0 Kidney transplant status
CPT/HCPCS: 36415; 80053; 85025; 85610; 85730